=== PATIENT | female | born 1960 | race Caucasian/White ===

== ENCOUNTER 2017-01-29 02:37 | Emergency (ER) | payer OTHER ==
[2017-01-29] MEDS ORDERED: Ondansetron ODT 4 MG TAB ONE (04:32)
[2017-01-29] MEDS ORDERED: Acetaminophen 325 MG TAB ONE (04:32)
--- NOTE | 2017-01-29 07:54 | RAD ---
CERVICAL SPINE 3 VIEWS: Date: 01/29/17 HISTORY: Slipped in bathroom and hit head. Dizziness. COMPARISON: None. FINDINGS: Limited evaluation of the complete cervical spine on the lateral projection. Cervical spine is adequ ately demonstrated from C1-C6. Visualized cervical spine demonstrates straightening of normal cervic al lordosis. Grade I anterolisthesis of C3 upon C4. Mild degenerative disc disease at C4-C5. Predent al space is normal. On the AP projection, no malalignment. On the open-mouth projection, the tip of the odontoid process is obscured. Lateral masses of C1 and C2 articulate. IMPRESSION: Incomplete evaluation of the cervical spine. Visualized cervical spine does not demonstrate fracture . Correlate clinically. If there is concern, consider CT. CODE T. POS: [facility]
--- NOTE | 2017-01-29 08:01 | CT ---
PRELIMINARY REPORT/[facility]/EMERGENCY AFTER HOURS PROCEDURE: EXAM: CT Head Without Intravenous Contrast EXAM DATE/TIME: Exam ordered 01/29/2017 3:50 AM CLINICAL HISTORY: 56 years old, female; Injury or trauma; Fall; Injury date: 01-29-17; Patient HX: 56 yo f brought in via ems 2/2 mechanical fall on bathroom floor this am. States she struck the back of her head, no lo c, dizzy and nauseus. Parents at bedside deny confusion or AMS. Very concerned for intercranial blee d. Pt not on any blood thinners without medical problems. TECHNIQUE: Axial computed tomography images of the head/brain without intravenous contrast. All CT scans at [facility] facility use one or more dose reduction techniques, viz.: automated exposure control; ma/kV adjust ment per patient size (including targeted exams where dose is matched to indication; i.e. head); or iterative reconstruction technique. COMPARISON: No relevant prior studies available. FINDINGS: Brain: Bifrontal and bitemporal brain atrophy. No hemorrhage. No significant white matter disease. Ventricles: Unremarkable. No ventriculomegaly. Bones/joints: Unremarkable. No acute fracture. Soft tissues: Unremarkable. Sinuses: Unremarkable as visualized. No acute sinusitis. Mastoid air cells: Unremarkable as visualized. No mastoid effusion. IMPRESSION: No intracranial hemorrhage. Thank you for allowing us to participate in the care of your patient. Dictated and Authenticated by: Bill Mccurdy MD 01/29/2017 4:14 AM Central Time ([place] \T\ [place]) FINAL REPORT NONCONTRAST HEAD CT: Date: 01/29/17 HISTORY: Fall. Post-traumatic pain. COMPARISON: None. TECHNIQUE: Noncontrast head CT is performed from skull base to skull vertex. FINDINGS/IMPRESSION: This report is in agreement with the preliminary report by [facility]. No intracranial post-traumatic sequ elae. POS: [facility]
== END 2017-01-29 05:23 | disposition home or self-care (01) ==
LOC: ERS 02:37
DX: S06.0X9A Concussion with loss of consciousness of unspecified duration, initial encounter (principal); E03.9 Hypothyroidism, unspecified; W18.2XXA Fall in (into) shower or empty bathtub, initial encounter
CPT/HCPCS: 70450; 72040; Q0162